=== PATIENT | male | born 1955 | race Two or more races ===

== ENCOUNTER 2021-03-12 15:41 | Emergency (ER) | payer MEDICAID, OTHER ==
[~2021-03-12] VITALS: Ht 154.9 cm; Wt 82.6 kg
[2021-03-12 17:38] VITALS: BP 166/93
== END 2021-03-12 18:35 | disposition home or self-care (01) ==
LOC: ER 15:41
DX: B02.9 Zoster without complications (principal); E11.9 Type 2 diabetes mellitus without complications; I10 Essential (primary) hypertension